=== PATIENT | male | born 1970 | race Caucasian/White ===

== ENCOUNTER 2018-12-20 16:08 | Emergency (ER) | payer MEDICARE ==
[2018-12-20 16:43] VITALS: BP 153/94
[2018-12-20] MEDS ORDERED: NORMAL SALINE 1000 ML 1,000 ML IV ONE (18:34)
--- NOTE | 2018-12-20 18:35 | ER Document Report ---
ED General - General Chief Complaint: Abdominal Pain Stated Complaint: ABDOMINAL PAIN Time Seen by Provider: 12/20/18 18:20 Primary Care Provider: [facility] [Provider Group] - Follow up as needed - [facility] Notes: 48-year-old male to the emergency department via EMS with complaints of left-sided flank pain that radiates down in his groin that began acutely this afternoon after eating angolan food at 1 pm. He admits to nausea. States that his pain had worsened this afternoon so he called medics. States this feels a lot like his prior kidney stones. He denies any blood in his urine. Denies any fevers, chest pain, shortness of breath, vomiting, diarrhea, headache. States that he lives in a broken down bus without any AC and admits that it has been pretty hot in the bus lately. Denies any passing out, dizziness, lightheadedness. - Related Data Allergies/Adverse Reactions: No Known Allergies Allergy (Verified 12/20/18 16:12) Past Medical History - General Information source: Patient - Social History Smoking Status: Never Smoker Chew tobacco use (# tins/day): No Frequency of alcohol use: None Drug Abuse: None Family History: Reviewed & Not Pertinent Patient has suicidal ideation: No Patient has homicidal ideation: No Renal/ Medical History: Denies: Hx Peritoneal Dialysis Review of Systems - Review of Systems Constitutional: Chills. denies: Fever EENT: No symptoms reported Cardiovascular: No symptoms reported. denies: Chest pain, Dyspnea, Syncope, Dizziness, Lightheaded Respiratory: denies: Cough, Short of breath Gastrointestinal: Abdominal pain, Nausea. denies: Diarrhea, Vomiting Genitourinary: Flank pain. denies: Burning, Dysuria, Frequency, Hematuria, Incontinence Musculoskeletal: No symptoms reported Skin: No symptoms reported Neurological/Psychological: No symptoms reported -: Yes All other systems reviewed and negative Physical Exam - Vital signs Vitals: Temp Pulse Resp BP Pulse Ox 97.4 F 88 16 153/94 H 94 12/20/18 16:40 12/20/18 16:40 12/20/18 16:40 12/20/18 16:40 12/20/18 16:40 Interpretation: Normal - General General appearance: Appears well, Alert - HEENT Head: Normocephalic, Atraumatic Eyes: Normal Pupils: PERRL - Respiratory Respiratory status: No respiratory distress Chest status: Nontender Breath sounds: Normal Chest palpation: Normal - Cardiovascular Rhythm: Regular Heart sounds: Normal auscultation Murmur: No - Abdominal Inspection: Normal, Morbidly Obese Distension: No distension Bowel sounds: Normal Tenderness: Tender - + TTP over the LUQ, left flank. No: McBurney's point, Larson's sign, Guarding, Rebound, Other Organomegaly: No organomegaly - Back Back: Normal, CVA tenderness - + left sided CVA - Extremities General upper extremity: Normal inspection, Nontender, Normal ROM, Normal temperature General lower extremity: Normal inspection, Nontender, Normal ROM, Normal temperature, Normal weight bearing - Neurological Neuro grossly intact: Yes Cognition: Normal Orientation: AAOx4 [place] Coma Scale Eye Opening: Spontaneous [place] Coma Scale Verbal: Oriented G[place] Coma Scale Motor: Obeys Commands Geraldo Coma Scale Total: 15 Speech: Normal Motor strength normal: LUE, RUE, LLE, RLE Sensory: Normal - Psychological Associated symptoms: Normal affect - slight disheveled appearance with some poor hygeine, accompanied by floral design teacher dog, Normal mood - Skin Skin Temperature: Warm Skin Moisture: Dry Skin Color: Normal Course - Re-evaluation Re-evalutation: Renal Ultrasound 12/20/18 18:47 IMPRESSION: Unremarkable renal ultrasound Laboratory 12/20/18 12/20/18 12/20/18 16:21 18:56 18:56 WBC 12.4 H RBC 4.95 Hgb 13.5 Hct 41.4 MCV 84 MCH 27.3 MCHC 32.7 RDW 13.6 Plt Count 258 Seg Neutrophils % 88.7 H Lymphocytes % 7.7 L Monocytes % 3.1 Eosinophils % 0.3 Basophils % 0.2 Absolute Neutrophils 11.0 H Absolute Lymphocytes 1.0 Absolute Monocytes 0.4 Absolute Eosinophils 0.0 Absolute Basophils 0.0 Sodium 141.6 Potassium 4.3 Chloride 105 Carbon Dioxide 27 Anion Gap 10 BUN 16 Creatinine 0.77 Est GFR ( Amer) > 60 Est GFR (Non-Af Amer) > 60 Glucose 150 H Calcium 9.3 Total Bilirubin 0.3 Direct Bilirubin 0.2 Neonat Total Bilirubin Not Reportable Neonat Direct Bilirubin Not Reportable Neonat Indirect Bili Not Reportable AST 34 ALT 33 Alkaline Phosphatase 119 Total Protein 8.2 Albumin 4.6 Lipase 33.3 Urine Color YELLOW Urine Appearance TURBID Urine pH 6.0 Ur Specific [place] 1.024 Urine Protein 30 H Urine Glucose (UA) NEGATIVE Urine Ketones NEGATIVE Urine Blood NEGATIVE Urine Nitrite NEGATIVE Urine Bilirubin NEGATIVE Urine Urobilinogen NEGATIVE Ur Leukocyte Esterase NEGATIVE Urine WBC (Auto) 3 Urine RBC (Auto) 4 Urine Bacteria (Auto) TRACE Squamous Epi Cells Auto <1 Calcium Oxalate Cr Auto MANY Amorphous Sediment Auto TRACE Urine Mucus (Auto) MOD Urine Ascorbic Acid 40 H Impression: Left flank pain, abd pain. Labs are reassuring, renal US is reassuring. Patient states that after pain meds his pain has decreased form an 8/10 to a 3/10. He reports no nausea. Repeat abdominal exam reveals soft abdomen with minimal left flank pain. Will discharge home with pain meds and antiemetics. Encouraged to push fluids. Return if worsening pain, intractable vomiting, fever, chest pain, SOB, passing out. Patient agrees with the plan. Will have him follow with PCP for close outpatient follow up. - Vital Signs Vital signs: Temp Pulse Resp BP Pulse Ox 97.4 F 88 16 153/94 H 94 12/20/18 16:40 12/20/18 16:40 12/20/18 16:40 12/20/18 16:40 12/20/18 16:40 - Laboratory Result Diagrams: 12/20/18 18:56 12/20/18 18:56 Laboratory results interpreted by me: 12/20/18 12/20/18 12/20/18 16:21 18:56 18:56 WBC 12.4 H Seg Neutrophils % 88.7 H Lymphocytes % 7.7 L Absolute Neutrophils 11.0 H Glucose 150 H Urine Protein 30 H Urine Ascorbic Acid 40 H Discharge - Discharge Clinical Impression: Flank pain, Nausea Condition: Stable Disposition: HOME, SELF-CARE Instructions: Abdominal Pain ([facility]), Flank Pain ([facility]) Additional Instructions: TAKE MEDICINES PRESCRIBED. RETURN IF WORSENING PAIN, FEVERS, PASSING OUT, IN TRACTABLE VOMITING. PUSH FLUIDS. REST AT HOME. FOLLOW UP WITH THE CLINIC PROVIDED. Prescriptions: Ondansetron [Zofran Odt 4 mg Tablet] 1 - 2 tab PO Q4H PRN #15 tab.rapdis PRN Reason: For Nausea/Vomiting Oxycodone HCl/Acetaminophen [Percocet 5-325 mg Tablet] 1 tab PO Q6H PRN #10 tablet PRN Reason: Referrals: [facility] [Provider Group] - Follow up as needed
[2018-12-20 19:06] LABS: ABSOLUTE MONOCYTES (AUTO) 0.4 10^3/uL (0.1-1.4); BASOPHILS % (AUTO) 0.2 % (0-2); EOSINOPHILS % (AUTO) 0.3 % (0-6); HEMATOCRIT 41.4 % (37.9-51.0); HEMOGLOBIN 13.5 g/dL (13.5-17.0); LYMPHOCYTES % (AUTO) 7.7 % (13-45); MEAN CORPUSCULAR HEMOGLOBIN 27.3 pg (27.0-33.4); MEAN CORPUSCULAR HGB CONC 32.7 g/dL (32.0-36.0); MEAN CORPUSCULAR VOLUME 84 fl (80-97); MONOCYTES % (AUTO) 3.1 % (3-13); PLATELET COUNT 258 10^3/uL (150-450); RED BLOOD COUNT 4.95 10^6/uL (4.35-5.55); RED CELL DISTRIBUTION WIDTH 13.6 % (11.5-14.0); SEGMENTED NEUTROPHILS % (AUTO) 88.7 % (42-78); TOTAL CELLS COUNTED % (AUTO) 100 %; WHITE BLOOD COUNT 12.4 10^3/uL (4.0-10.5)
[2018-12-20 19:28] LABS: ALANINE AMINOTRANSFERASE 33 U/L (21-72); ALBUMIN 4.6 g/dL (3.5-5.0); ALKALINE PHOSPHATASE 119 U/L (38-126); ANION GAP 10 (5-19); ASPARTATE AMINO TRANSFERASE 34 U/L (17-59); BILIRUBIN,DIRECT 0.2 mg/dL (0.0-0.4); BILIRUBIN,TOTAL 0.3 mg/dL (0.2-1.3); BLOOD UREA NITROGEN 16 mg/dL (7-20); CALCIUM 9.3 mg/dL (8.4-10.2); CARBON DIOXIDE 27 mmol/L (22-30); CHLORIDE 105 mmol/L (98-107); GLUCOSE 150 mg/dL (75-110); POTASSIUM 4.3 mmol/L (3.6-5.0); TOTAL PROTEIN 8.2 g/dL (6.3-8.2)
[2018-12-20 19:28] LABS: AMORPHOUS SEDIMENT,URINE TRACE /HPF; APPEARANCE,URINE TURBID; BILIRUBIN,URINE NEGATIVE (NEGATIVE); CALCIUM OXALATE CRYSTALS,URINE MANY /HPF; COLOR,URINE YELLOW; GLUCOSE, URINE NEGATIVE (NEGATIVE); KETONES,URINE NEGATIVE (NEGATIVE); LEUKOCYTE ESTERASE,URINE NEGATIVE (NEGATIVE); NITRITE,URINE NEGATIVE (NEGATIVE); PROTEIN,URINE 30 mg/dL (NEGATIVE); URINE SPECIFIC GRAVITY 1.024; UROBILINOGEN,URINE NEGATIVE mg/dL (<2.0)
--- NOTE | 2018-12-20 20:14 | RADIOLOGY REPORT (SQ) ---
EXAM DESCRIPTION: US RETROPERITONEUM LIMITED COMPLETED DATE/TME: 12/20/2018 18:47 CLINICAL HISTORY: 48 years Male LEFT FLANK PAIN COMPARISON: None. TECHNIQUE: Transabdominal grayscale imaging performed to evaluate the kidneys and urinary bladder. FINDINGS: Right kidney measures 13.7 x 5.1 cm. No evidence of hydronephrosis, mass or calculus. Left kidney measures 13.7 x 5.7 cm. No evidence of hydronephrosis mass or calculus. Bladder volume 97 mm. Ureteral jets are not seen. IMPRESSION: Unremarkable renal ultrasound
[2018-12-20] MEDS ORDERED: FENTANYL CITRATE INJ/PF 100 MCG/2 ML AMPUL IV ONE (21:16)
[2018-12-20] MEDS ORDERED: ONDANSETRON HCL INJ/PF 4 MG/2 ML SDV IV ONE (21:16)
[2018-12-20] MEDS ORDERED: OXYCODONE-ACETAMINOPHEN 5-325 MG TABLET PO ONE (22:27)
== END 2018-12-21 00:04 | disposition home or self-care (01) ==
LOC: ER 16:08
DX: R10.9 Unspecified abdominal pain (principal); R11.0 Nausea; R10.30 Lower abdominal pain, unspecified; E66.01 Morbid (severe) obesity due to excess calories
CPT/HCPCS: 36415; 83690; 85025; 80053; 81001; 76775; J3010; A9270; J2405; J7030; 96361; 96374; 96375; 99284